=== PATIENT | female | born 1955 | race Caucasian/White ===

== ENCOUNTER 2018-12-04 09:39 | Day surgery (SDC) | payer OTHER ==
[~2018-12-04] VITALS: Ht 162.6 cm; Wt 94.3 kg
[~2018-12-04 09:39] MED LIST: CEFAZOLIN 1 GM IVPB PREMIX 50 ML IV ONE
[2018-12-04] MEDS ORDERED: CEFAZOLIN 1 GM IVPB PREMIX 50 ML IV ONE (10:00)
[2018-12-04] MEDS ORDERED: SEVOFLURANE 15 MIN GAS INH ONE (12:25)
[2018-12-04] MEDS ORDERED: LR 1,000 ML IV.SOLN IV ONE (12:25)
[2018-12-04] MEDS ORDERED: ONDANSETRON HCL 4 MG/2 ML VIAL IVP ONE (12:25)
[2018-12-04] MEDS ORDERED: MIDAZOLAM HCL 5 MG/5 ML VIAL IVP ONE (12:25)
[2018-12-04] MEDS ORDERED: ROCURONIUM BROMIDE 10 MG/ML (ZEMURON) IV ONE (12:25)
[2018-12-04] MEDS ORDERED: fentaNYL CITRATE/PF 100 MCG/2 ML AMP IVP ONE (12:25)
[2018-12-04] MEDS ORDERED: BUPIVACAINE /PF 0.25% 30 ML VIAL INJ ONE (12:25)
[2018-12-04] MEDS ORDERED: NS IRRIG SOLN 1000 ML IR ONE (12:25)
[2018-12-04] MEDS ORDERED: PROPOFOL 200MG/ 20ML VIAL (DIPRIVAN) IV ONE (12:25)
[2018-12-04] MEDS ORDERED: ISOSULFAN BLUE 5 ML VIAL (LYMPHAZURIN) INJ ONE (12:25)
[2018-12-04] MEDS ORDERED: METOCLOPRAMIDE HCL 10 MG/2 ML VIAL IVP PRN (13:15)
[2018-12-04] MEDS ORDERED: MORPHINE 4 MG/ML INJ. SYRINGE IVP PRN ×2 (13:15)
[2018-12-04] MEDS: MORPHINE 4 MG/ML INJ. SYRINGE IVP PRN ×2 (14:26→14:41)
[2018-12-04] MEDS ORDERED: MORPHINE 4 MG/ML INJ. SYRINGE ONE (14:31)
[2018-12-04 16:05] VITALS: BP_SYST 131
== END 2018-12-04 15:40 | disposition home or self-care (01) ==
LOC: SDS 09:39
PROVIDERS: ATTEND Colon & Rectal Surgery
DX: C50.911 Malignant neoplasm of unspecified site of right female breast (principal); F41.9 Anxiety disorder, unspecified; M25.50 Pain in unspecified joint; J45.909 Unspecified asthma, uncomplicated; Z68.36 Body mass index [BMI] 36.0-36.9, adult; R00.1 Bradycardia, unspecified; E78.5 Hyperlipidemia, unspecified; E03.9 Hypothyroidism, unspecified; F33.1 Major depressive disorder, recurrent, moderate; E55.9 Vitamin D deficiency, unspecified; Z98.890 Other specified postprocedural states; Z82.49 Family history of ischemic heart disease and other diseases of the circulatory system; Z80.9 Family history of malignant neoplasm, unspecified; Z80.0 Family history of malignant neoplasm of digestive organs; Z80.43 Family history of malignant neoplasm of testis; Z83.3 Family history of diabetes mellitus; Z80.6 Family history of leukemia; Z87.891 Personal history of nicotine dependence
CPT/HCPCS: 19081; 19301; 38525; 78195; 88307; 88329; 88333; 88342; A9541; J0690; J2250; J2270; J2405; J2704; J2765; J3010; J3490; J7120; Q9968; 76098-TC; 88305